=== PATIENT | male | born 1975 | race Caucasian/White ===

== ENCOUNTER 2023-03-06 16:03 | Emergency (ER) | payer SELFPAY ==
[2023-03-06 16:26] VITALS: BP 145/60; O2SAT 96
[2023-03-06] MEDS ORDERED: IBUPROFEN 800 MG TABLET PO STA (16:30)
[2023-03-06 17:19] LABS: B. PARAPERTUSSIS- RESP PCR PAN NOT DETECTED; B. PERTUSSIS- RESP PCR PANEL NOT DETECTED; C. PNEUMONIAE- RESP PCR PANEL NOT DETECTED; CORONAVIRUS 229E-RESP PCR NOT DETECTED; CORONAVIRUS HKU1-RESP PCR NOT DETECTED; CORONAVIRUS NL63-RESP PCR NOT DETECTED; CORONAVIRUS OC43-RESP PCR NOT DETECTED; HUMAN METAPNEUMOVIRUS NOT DETECTED; INFLUENZA A H1 2009- RESP PCR DETECTED; INFLUENZA A- RESP PCR PANEL NOT DETECTED; INFLUENZA B - RESP PCR PANEL NOT DETECTED; M. PNEUMONIAE- RESP PCR PANEL NOT DETECTED; PARAINFLUENZA VIRUS 1 NOT DETECTED; PARAINFLUENZA VIRUS 2 NOT DETECTED; PARAINFLUENZA VIRUS 3 NOT DETECTED; PARAINFLUENZA VIRUS 4 NOT DETECTED; RHINOVIRUS/ENTEROVIRUS NOT DETECTED; RSV- RESP PCR PANEL NOT DETECTED; SARS-CoV-2 -RESP PCR PANEL NOT DETECTED
--- NOTE | 2023-03-06 17:29 | ED Physician Documentation ---
History of Present Illness - Stated complaint Stated Complaint: FEVER/COUGH/WEAKNESS - Chief complaint Chief Complaint: Fever - History obtained from History obtained from: Patient - History of Present Illness Timing: Today Pain level max: 4 Pain level now: 4 - Additonal information Additional information: Patient is a 47-year-old male who presents to the emergency department with fever, body aches, cough and congestion. No nausea or vomiting. No diarrhea. No rashes. No neck pain. He is visiting from [place]. No abdominal pain. No chest pain. No shortness of breath. Has not taken anything for the body aches. Review of Systems Constitutional: reports: Fever, Chills, Myalgias Respiratory: reports: Cough (dry). denies: Dyspnea GI: denies: Abdominal Pain, Nausea, Vomiting, Diarrhea : denies: Dysuria, Frequency, Hesitancy Skin: denies: Rash Musculoskeletal: denies: Neck pain, Back pain Neurologic: denies: Seizure, Confused, Headache, LOC PD PAST MEDICAL HISTORY - Past Medical History Past Medical History: No - Present Medications Home Medications: Ambulatory Orders Medication Instructions Recorded Confirmed Oseltamivir [Tamiflu] 75 mg PO BID #10 cap 03/06/23 - Allergies Allergies/Adverse Reactions: Allergies Allergy/AdvReac Type Severity Reaction Status Date / Time No Known Drug Allergies Allergy Verified 03/06/23 16:19 - Living Situation Living Arrangement: reports: At home - Social History Does the pt smoke?: No Does the pt have substance abuse?: No - Family History Family history: reports: Non contributory PD ED PE NORMAL - Vitals Vital signs reviewed: Yes - General General: Alert and oriented X 3, No acute distress - HEENT HEENT: PERRL, Ears normal, Moist mucous membranes - Neck Neck: Supple, no meningeal sign - Cardiac Cardiac: RRR, Strong equal pulses - Respiratory Respiratory: No respiratory distress, Clear bilaterally - Abdomen Abdomen: Soft, Non tender, Non distended - Derm Derm: Warm and dry, No rash - Extremities Extremities: No calf tenderness / cord - Neuro Neuro: Alert and oriented X 3 - Psych Psych: Normal mood, Normal affect Results - Vitals Vitals: Vital Signs - 24 hr 03/06/23 03/06/23 03/06/23 16:11 16:39 17:45 Temperature 102.8 C H 102.8 C H 36.4 C L Heart Rate 117 H Respiratory 16 Rate Blood Pressure 145/60 H O2 Saturation 96 Oxygen O2 Source Room air - Labs Labs: Laboratory Tests 03/06/23 16:00 Nasal Adenovirus (PCR) NOT DETECTED Nasal B. parapertussis DNA (PCR) NOT DETECTED Nasal Coronavir 229E PCR NOT DETECTED Nasal Coronavir HKU1 PCR NOT DETECTED Nasal Coronavir NL63 PCR NOT DETECTED Nasal Coronavir OC43 PCR NOT DETECTED Nasal Enterovir/Rhinovir PCR NOT DETECTED Nasal Influ A H1 2009 PCR DETECTED A Nasal Influenza B PCR NOT DETECTED Nasal Influenza A PCR NOT DETECTED Nasal Parainfluen 1 PCR NOT DETECTED Nasal Parainfluen 2 PCR NOT DETECTED Nasal Parainfluen 3 PCR NOT DETECTED Nasal Parainfluen 4 PCR NOT DETECTED Nasal RSV (PCR) NOT DETECTED Nasal B.pertussis DNA PCR NOT DETECTED Nasal C.pneumoniae (PCR) NOT DETECTED Francesco Human Metapneumo PCR NOT DETECTED Nasal M.pneumoniae (PCR) NOT DETECTED Nasal SARS-CoV-2 (PCR) NOT DETECTED PD Medical Decision Making - ED course Complexity details: reviewed results, considered differential, d/w patient ED course: 47-year-old male presents to the emergency department with fever and bodyaches. Positive for influenza A. Consistent with influenza A. Feels better after Motrin. He is within the window for Tamiflu, he would like this prescribed for him. Tamiflu prescribed. Patient is well-appearing, nontoxic. Tolerating p.o. without difficulty. Abdomen is soft, nontender nondistended on serial exam. Patient counseled regarding signs and symptoms for which I believe and urgent re-evaluation would be necessary. Patient with good understanding of and agreement to plan and is comfortable going home at this time This document was made in part using voice recognition software. While efforts are made to proofread this document, sound alike and grammatical errors may occur. Departure - Departure Disposition: 01 Home, Self Care Clinical Impression: Influenza A Condition: Good Instructions: ED Flu, Medication: Tamiflu (Oseltamivir) Follow-Up: your,doctor as needed [Other] Prescriptions: Oseltamivir [Tamiflu] 75 mg PO BID #10 cap Comments: Your prescription was sent to [facility] in [place]. You can use Motrin or Tylenol as needed for pain and fever. Take all of the Tamiflu until gone. Make sure you are drinking plenty of fluids at home. You have tested positive for influenza A today Forms: PCP List Discharge Date/Time: 03/06/23 17:45
== END 2023-03-06 17:45 | disposition home or self-care (01) ==
LOC: ED 16:03
DX: J10.1 Influenza due to other identified influenza virus with other respiratory manifestations (principal)
CPT/HCPCS: 87633; 99283; A9270